=== PATIENT | male | born 1985 | race Caucasian/White ===

== ENCOUNTER 2023-11-28 08:39 | Emergency (ER) | payer OTHER, SELFPAY ==
[2023-11-28 09:13] VITALS: BP 126/76; PULSE 61; RESP 17; TEMP 36; O2SAT 97; BMI 26.6
--- NOTE | 2023-11-28 11:28 | DI.RAD.S_ITS ---
PROCEDURE: XR LUMBAR SPINE 2-3V INDICATIONS: numbness bilat legs, lift injury 11/20 TECHNIQUE: 3 views of the lumbar spine were acquired. COMPARISON: None. FINDINGS: Bones: 5 [id number] vertebrae are present, with lumbarization of S1. There is normal bony alignment. No vertebral body compression fractures. No suspicious bony lesions. Moderate disc height loss at S1-S2. Mild disc height loss at remaining levels. Soft tissues: Overlying bowel gas pattern is normal. No suspicious soft tissue calcifications. IMPRESSION: Mild to moderate multilevel degenerative disc disease. No acute abnormality. Dictated by: Saturnino Michael M.D. on 11/28/2023 at 11:57 Approved by: Saturnino Michael M.D. on 11/28/2023 at 11:59
--- NOTE | 2023-11-28 11:36 | ED_ITS ---
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 Patient states that he was working out and doing crunches on a exercise ball and it was later on that day about 8 days ago that he started having this pain. He says he has had back problems here and there that usually resolve in a couple of days with Tylenol and ibuprofen and rest. This is the longest he has had this type of pain or discomfort. Denies any recent fevers, chills, saddle paresthesias, difficulty walking, change in bowel or bladder function although he does feel a little more constipated than usual the last week. Or any other symptoms or concerns. He states he is able to walk and ambulate normally has been holding off on active flying due to his pain and injury. He has been taking Tylenol and ibuprofen which helps a little. Related Data Previous Rx's Medication Instructions Recorded baclofen 10 mg tablet 10 mg PO TID Muscle spasms 10 days 11/28/23 #30 tabs lidocaine 5 % topical patch 1 patch topical DAILY 15 days #15 11/28/23 ea Allergies Allergy/AdvReac Type Severity Reaction Status Date / Time No Known Drug Allergies Allergy Verified 11/28/23 09:17 Review of Systems <Mary Grace Manning PA-C - Last Filed: 11/28/23 14:36> Review of Systems Narrative: See HPI Patient History <Mary Grace Manning PA-C - Last Filed: 11/28/23 14:36> Social History Smoking Status: Never smoker Smoking Status: Never smoker alcohol intake frequency: 0-2 drinks per day Substance Use Type: does not use Exam <Mary Grace Manning PA-C - Last Filed: 11/28/23 14:36> Narrative Exam Narrative: GENERAL: 38 year old patient appears stated age. Well-developed patient, in mild distress. HEAD: Atraumatic. Normocephalic. EYES: Pupils equal round and reactive. Extraocular motions intact. No scleral icterus. No injection or drainage. ENT: Nose without bleeding, purulent drainage. Airway patent. NECK: Trachea midline. Non tender CARDIOVASCULAR: Regular rate and rhythm without murmurs, gallops, or rubs. RESPIRATORY: Clear to auscultation. Breath sounds equal bilaterally. No wheezes, rales, or rhonchi. GASTROINTESTINAL: Abdomen soft, non-tender, nondistended. EXTREMITIES: No edema or joint tenderness. BACK: There is slight tenderness will pale palpation over the mid lumbosacral junction L5-S1 S2, increased pain and report of tingling sensation with resisted extension and flexion of the right knee otherwise no increased pain with flexion-extension of the hip or knee. Increased pain with extension of the low back and flexion past 30? of the hips. Strong pedal pulses, sensation intact. Otherwise spine/back is Nontender without deformity or crepitance. No flank tenderness. NEURO: AOx3. SKIN: No rash or erythema of visible areas Initial Vital Signs Initial Vital Signs: Vital Signs Temperature 96.8 F L 11/28/23 09:13 Pulse Rate 61 11/28/23 09:13 Respiratory Rate 17 11/28/23 09:13 Blood Pressure 126/76 11/28/23 09:13 Pulse Oximetry 97 11/28/23 09:13 Oxygen Delivery Method Room Air 11/28/23 09:13 <Magaly Rodney DO - Last Filed: 11/29/23 07:26> Initial Vital Signs Initial Vital Signs: Vital Signs Temperature 96.8 F L 11/28/23 09:13 Pulse Rate 61 11/28/23 09:13 Respiratory Rate 17 11/28/23 09:13 Blood Pressure 126/76 11/28/23 09:13 Pulse Oximetry 97 11/28/23 09:13 Oxygen Delivery Method Room Air 11/28/23 09:13 Course <Mary Grace Manning PA-C - Last Filed: 11/28/23 14:36> Orders Ordered: ED Orders 11/28/23 11:28 XR lumbar spine 2-3V Stat Vital Signs Vital signs: Vital Signs - 8 hr 11/28/23 09:13 11/28/23 12:46 Temperature 96.8 F L Pulse Rate 61 57 L Respiratory Rate 17 14 Blood Pressure 126/76 118/67 Pulse Oximetry 97 100 Oxygen Delivery Method Room Air Room Air <Magaly Rodney DO - Last Filed: 11/29/23 07:26> Orders Ordered: ED Orders 11/28/23 11:28 XR lumbar spine 2-3V Stat Vital Signs Vital signs: Vital Signs - 8 hr 11/28/23 09:13 11/28/23 12:46 Temperature 96.8 F L Pulse Rate 61 57 L Respiratory Rate 17 14 Blood Pressure 126/76 118/67 Pulse Oximetry 97 100 Oxygen Delivery Method Room Air Room Air MDM - Back Pain/Injury <Mary Grace Manning PA-C - Last Filed: 11/28/23 14:36> Differential Diagnosis Differential diagnosis: Likely lumbar radiculopathy, sciatica and strain of lumbar region Lab Data Labs: Urine Dip Bedside Urine Glucose Negative Bedside Urine Bilirubin - Negative Bedside Urine Ketone - Negative Urine Specific [place] 1.010 Bedside Urine Occult Blood - Negative Bedside Urine pH 7.0 Bedside Urine Protein - Negative Bedside Urine Urobilinogen - Negative Bedside Urine Nitrite - Negative Bedside Urine Leukocytes - Negative Esterase Imaging Data XR Lumbar: My Impression: Agree with Radiology interpretation Radiologist's Impression: [place] [address] XRay Report Signed Patient: Joanie Marina MR#: [id number] : 1985 Acct:[id number] Age/Sex: 38 / M Date of Service: 11/28/23 Loc: ED Accession Number: [id number] Procedure: XR lumbar spine 2-3V Ordering Provider: Mary Grace Manning P.A-C PROCEDURE: XR LUMBAR SPINE 2-3V INDICATIONS: numbness bilat legs, lift injury 11/20 TECHNIQUE: 3 views of the lumbar spine were acquired. COMPARISON: None. FINDINGS: Bones: 5 [id number] vertebrae are present, with lumbarization of S1. There is normal bony alignment. No vertebral body compression fractures. No suspicious bony lesions. Moderate disc height loss at S1-S2. Mild disc height loss at remaining levels. Soft tissues: Overlying bowel gas pattern is normal. No suspicious soft tissue calcifications. IMPRESSION: Mild to moderate multilevel degenerative disc disease. No acute abnormality. Dictated by: Saturnino Michael M.D. on 11/28/2023 at 11:57 Approved by: Saturnino Michael M.D. 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 He has no back pain red flag symptoms, x-rays obtained for further evaluation is he has not had any previous imaging, reveal a does compression at S1-S2 moderate and some mild disc compressions in the lumbar spine as well as some mild degenerative changes. Discussed options with the patient and encouraged him to try gentle stretching rest heat ice may try topical diclofenac [id number], prescription today for lidocaine patches will also prescribe baclofen, patient will check with his flight DrLucía to see if he is allowed to take this. He has not actively flying. He is encouraged to see Orthopedics for further evaluation and possibly more advanced imaging if he is not improving within 3 weeks from his date of injury. Return precautions provided, follow-up plan discussed, all questions answered. <Magaly Rodney DO - Last Filed: 11/29/23 07:26> Lab Data Labs: Urine Dip Bedside Urine Glucose Negative Bedside Urine Bilirubin - Negative Bedside Urine Ketone - Negative Urine Specific [place] 1.010 Bedside Urine Occult Blood - Negative Bedside Urine pH 7.0 Bedside Urine Protein - Negative Bedside Urine Urobilinogen - Negative Bedside Urine Nitrite - Negative Bedside Urine Leukocytes - Negative Esterase Discharge Plan Departure Patient Disposition: Home Clinical Impression: Compression of intervertebral disc Strain of lumbar region Qualifiers: Encounter type: initial encounter Qualified Code(s): S39.012A - Strain of muscle, fascia and tendon of lower back, initial encounter Instructions: DI for Back Pain With Sciatica Activity Restrictions/Additional Instructions: *You have been diagnosed with [low back strain, disc compression] *What to do: *Please continue to take your regular medications as directed. [2 ] New medication prescriptions sent to your pharmacy: [Baclofen, lidocaine] [ ] New medication written as a paper prescription [ ] No new medications given *Please follow up with your primary care provider in 2-3 days, call for an appointment. Let them know you were seen in the Emergency Department and that we ask that you be seen in follow up. We will electronically transmit a record of today's note if your PCP is in our system. You injured her back about 8 days ago and have had persistent symptoms since that time, as far as treatment options I would encourage you to continue Tylenol ibuprofen rest, gentle stretching as tolerated, try heat and ice you may try topical diclofenac [id number], I have prescribed lidocaine patches for you as well as a muscle relaxer. Your lumbar x-ray today does show you have some mild degenerative changes in her spine and there is disc compression that is read as moderate by radiologist between your S1 and S2 vertebrae and you have some mild disc compression of your other lumbar vertebrae. These may be primarily chronic changes although certainly possible you exacerbated things or this worsened with your activity 8 days ago exercising. I have included contact information for 1 of our orthopedic providers below. You are welcome to reach out to them sooner although typically we recommend supportive care and treatment for 3 weeks and if your back pain has not resolved or improved in that time seeing orthopedics spine is the next step.. *If you do not have a primary care provider please contact the [facility] Resource line at [phone]. They will ask some questions about your medical history and help get you set up with a doctor in the community. *Return to Emergency Department if you should have any new, worsening or concerning symptoms, such as [fever greater than 101 F, shaking chills, worsening pain, persistent vomiting or other bothersome symptoms] Prescriptions: New lidocaine 5 % adhesive patch,medicated 1 patch topical DAILY 15 Days Qty: 15 0RF Rx Instructions: leave on most painful area for up to 12 hrs baclofen 10 mg tablet 10 mg PO TID 10 Days Qty: 30 0RF Referrals: Harry Ruiz MD [Physician] - (LBP 13 D S1-S1 mod compression, [place] flyer--recc see ortho if not improved in 3 wks from injury) Stand Alone Forms: Patient Portal/API ED Sign-out <Magaly Rodney DO - Last Filed: 11/29/23 07:26> Cosign ED Attending Madisynature Attestation: I was available for consultation.
--- NOTE | 2023-11-28 11:43 | PC.NURSE ---
patient was exercising and noticed a soreness in his back after the workout was over. He states that he was able to help his pain with 1 course of 500 mg apap and 200mg ibuprophen.
[2023-11-28 12:46] VITALS: BP 118/67; PULSE 57; RESP 14; O2SAT 100
== END 2023-11-28 12:47 | disposition home or self-care (01) ==
PROVIDERS: Emergency Provider Student in an Organized Health Care Education/Training Program
DX: S39.012A Strain of muscle, fascia and tendon of lower back, initial encounter (principal); M51.87 Other intervertebral disc disorders, lumbosacral region; X50.9XXA Other and unspecified overexertion or strenuous movements or postures, initial encounter; Y93.B9 Activity, other involving muscle strengthening exercises
CPT/HCPCS: 72100; 81003; 99283